=== PATIENT | male | born 1935 | race Hispanic/Latino ===

== ENCOUNTER 2024-04-29 12:11 | Emergency (ER) | payer OTHER ==
[~2024-04-29] VITALS: Ht 152.4 cm; Wt 50.3 kg
[2024-04-29 12:38] LABS: BASOPHILS # (AUTO) 0.01 K/uL (0.00-0.20); BASOPHILS % (AUTO) 0.1 % (0.0-5.0); HEMATOCRIT 38.3 % (42-54); IMMATURE GRANULOCYTE ABSOLUTE 0.07 K/uL (0-1); LYMPHOCYTES # (AUTO) 2.8 K/uL (1.0-4.8); LYMPHOCYTES % (AUTO) 18.2 % (21.0-51.0); MEAN CORPUSCULAR HEMOGLOBIN 31.6 pg (27.0-33.0); MEAN CORPUSCULAR HGB CONC 34.2 g/dL (32.0-36.0); MEAN CORPUSCULAR VOLUME 92.3 fL (79-99); MONOCYTES # (AUTO) 0.3 K/uL (0.1-1.0); NEUTROPHILS % (AUTO) 79.2 % (40.0-77.0); PLATELET COUNT (AUTO) 283 K/uL (130-400); RED BLOOD CELL COUNT(AUTO) 4.15 MIL/uL (4.50-6.20); WHITE BLOOD COUNT (AUTO) 15.1 K/uL (4.8-10.8)
[2024-04-29 12:47] LABS: CREATININE 1.3 mg/dL (0.5-1.3); POTASSIUM 3.5 mmol/L (3.5-5.1)
[2024-04-29 13:04] LABS: B-TYPE NATRIURETIC PEPTIDE 397 pg/mL (0-100)
[2024-04-29] MEDS: ASPIRIN 325MG TAB PO ONE (13:17)
[2024-04-29] MEDS: NITROGLYCERIN 1GM OINT 1 INCH/1GM TD ONE (13:17)
[2024-04-29] MEDS ORDERED: NITROGLYCERIN 0.4 MG SL TAB SL PRN (13:30)
[2024-04-29] MEDS ORDERED: OMEP20CA12 PO (15:00)
[2024-04-29] MEDS: MAG/ALUM/SIMETH 30 ML UDCUP PO ONE (15:05)
[2024-04-29] MEDS: PANTOPRAZOLE 40 MG/VIAL IVP ONE (15:05)
[2024-04-29] MEDS: LIDOCAINE HCL 2% VISCOUS 15 ML UDCUP PO ONE (15:05)
[2024-04-29] MEDS: DICYCLOMINE HCL 10 MG/5 ML ML PO ONE (15:06)
[2024-04-29 15:07] VITALS: BP 131/63; PULSE 88; RESP 20; O2SAT 99
[2024-04-29] MEDS ORDERED: NITR0.4T50 SL (15:43)
== END 2024-04-29 15:44 | disposition home or self-care (01) ==
LOC: EDH 12:11
DX: I20.89 Other forms of angina pectoris (principal); I10 Essential (primary) hypertension; K21.9 Gastro-esophageal reflux disease without esophagitis; E78.00 Pure hypercholesterolemia, unspecified; Z79.899 Other long term (current) drug therapy; Z95.1 Presence of aortocoronary bypass graft
CPT/HCPCS: 99283; 96374; 71045; 82550; 84484; 80048; 83880; 85025; 36415; 93005; J2470